=== PATIENT | male | born 1990 | race Caucasian/White ===

== ENCOUNTER 2018-10-31 18:01 | Emergency (ER) | payer OTHER ==
[~2018-10-31] VITALS: Ht 172.7 cm; Wt 154.2 kg
[2018-10-31 18:10] VITALS: BP 145/84
[2018-10-31] MEDS ORDERED: KETOROLAC 60 MG/2 ML VIAL IM ONE (18:25)
[2018-10-31] MEDS ORDERED: CLINDAMYCIN 600 MG/4 ML VIAL IM ONE (18:25)
[2018-10-31] MEDS ORDERED: NEOMYCIN/POLYMYXIN/BACITRACIN 0.9 GM/1 PKT TP ONE (18:25)
--- NOTE | 2018-10-31 19:01 | NUR ---
AAO X4 28 YR MALE WITH C/O NON DRAINING PAINFUL BUMP/RASH AT NECK X 2 DAYS. DENIES TRAUMA. HX: ASTHMA
--- NOTE | 2018-10-31 19:15 | NUR ---
REPORT GIVEN TO JULIO CESAR KENNY
[2018-10-31 19:25] VITALS: BP 145/84
--- NOTE | 2018-10-31 19:25 | NUR ---
Patient discharged with v/s stable. Written and verbal after care instructions given and explained. Patient alert, oriented and verbalized understanding of instructions. Ambulatory with steady gait. All questions addressed prior to discharge. ID band removed. Patient advised to follow up with PMD. Rx of Motrin, doxycyline, Condamycine given. Patient educated on indication of medication including possible reaction and side effects. Opportunity to ask questions provided and answered.
== END 2018-10-31 19:25 | disposition home or self-care (01) ==
LOC: MED 18:01
DX: L02.13 Carbuncle of neck (principal)
CPT/HCPCS: 96372; 99283; J1885; J3490

== ENCOUNTER 2019-03-22 12:59 | Emergency (ER) | payer OTHER ==
[~2019-03-22] VITALS: Ht 172.7 cm; Wt 154.2 kg
--- NOTE | 2019-03-22 13:10 | NUR ---
PATIENT AMBULATED TO BED 6 AT THIS TIME.
[2019-03-22 13:14] VITALS: BP 156/92
[2019-03-22] MEDS ORDERED: IBUPROFEN 800 MG TAB PO ONE (14:15)
[2019-03-22] MEDS ORDERED: LIDOCAINE 1% 500 MG/50 ML VIAL INJ SCH (14:15)
--- NOTE | 2019-03-22 14:17 | NUR ---
PT BIB FAMILY C/O ABCESS TO LEFT SIDE OF BREAST W/ REDNESS AND PAIN, PAIN 8/10, PT DENIES N/V/D; SKIN IS INTACT, PINK/WARM/DRY; AAOX4, PERRL, WITH EVEN AND STEADY GAIT; LUNGS CLEAR BL, BREATHING UNLABORED; HR EVEN AND REGULAR, BL PERIPHERAL PULSES PRESENT; BS ACTIVE X4, NO TENDERNESS TO PALPATION. PT DENIES ANY FEVER, CP, SOB, OR COUGH AT THIS TIME; PT STATES 5/10 PAIN AT THIS TIME; VSS; PATIENT POSITIONED FOR COMFORT; HOB ELEVATED; BEDRAILS UP X2; BED DOWN.
[2019-03-22] MEDS ORDERED: LIDOCAINE 2% 1000 MG/50 ML VIAL INJ ONE (14:43)
--- NOTE | 2019-03-22 15:00 | NUR ---
ARTHUR SHI AT BEDSIDE FOR I & D
[2019-03-22 15:43] VITALS: BP 149/83
--- NOTE | 2019-03-22 15:43 | NUR ---
Patient discharged with v/s stable. Written and verbal after care instructions given and explained. Patient alert, oriented and verbalized understanding of instructions. Ambulatory with steady gait. All questions addressed prior to discharge. ID band removed. Patient advised to follow up with PMD. Rx of BACTRIM, KEFLEX, AND CLOTRIMAZOLE TOPICAL CREAM given. Patient educated on indication of medication including possible reaction and side effects. Opportunity to ask questions provided and answered. PT INSTRUCTED TO CHANGE GAUZE TWICE A DAY FOR THE NEXT 2 DAYS AND THEN FOLLOW UP FOR A WOUND CHECK.
== END 2019-03-22 15:43 | disposition home or self-care (01) ==
LOC: MED 12:59
DX: J86.9 Pyothorax without fistula (principal); B35.4 Tinea corporis; R03.0 Elevated blood-pressure reading, without diagnosis of hypertension; J45.909 Unspecified asthma, uncomplicated
CPT/HCPCS: 10060; 99283; J2001

== ENCOUNTER 2019-03-24 17:05 | Emergency (ER) | payer OTHER ==
[~2019-03-24] VITALS: Ht 175.3 cm; Wt 158.5 kg
[2019-03-24 17:23] VITALS: BP 102/68
--- NOTE | 2019-03-24 17:27 | NUR ---
PATIENT AMBULATED TO ER BED 3.
--- NOTE | 2019-03-24 17:30 | NUR ---
PT BIB SELF TO THE ED FOR F/U LEFT BREAST ABSCESS. PT WAS HERE ON 03/22/19 FOR ABSCESS WHICH WAS DRAINED SAME DAY AND WAS TOLD TO F/U TODAY. TAKING ANTIBIOTICS SINCE THEN. DENIES FEVER. ABSCESS SITE APPEARS RED, WARM, FRIM. COVERED WITH DRESSING. DENIES ANY OTHER PROBLEM AT THIS TIME. STATES PAIN OF 0/10.
--- NOTE | 2019-03-24 17:38 | NUR ---
PT EVALUATED BY ISAIAS HINOJOSA. DRESSING CHANGED.
--- NOTE | 2019-03-24 17:45 | NUR ---
Patient discharged with v/s stable. Written and verbal after care instructions given and explained. Patient verbalized understanding. Ambulatory with steady gait. All questions addressed prior to discharge. Advised to follow up with PMD. Discharged by ER MD.
[2019-03-24 17:52] VITALS: BP 102/68
== END 2019-03-24 17:45 | disposition home or self-care (01) ==
LOC: MED 17:05
DX: N61.1 Abscess of the breast and nipple (principal); J45.909 Unspecified asthma, uncomplicated
CPT/HCPCS: 99281

== ENCOUNTER 2024-06-13 17:20 | Emergency (ER) | payer MEDICAID, OTHER ==
[~2024-06-13] VITALS: Ht 172.7 cm; Wt 187.1 kg
[2024-06-13 18:35] VITALS: BP 121/74; PULSE 105; RESP 18; TEMP 98.3; O2SAT 95
[2024-06-13] MEDS ORDERED: CEPH-588 PO (19:34)
[2024-06-13] MEDS ORDERED: ALBU0.0912 IH (19:34)
[2024-06-13] MEDS ORDERED: [UNRECOGNIZED DRUG - CODE] TP (19:34)
== END 2024-06-13 19:43 | disposition home or self-care (01) ==
LOC: MED 17:20
DX: J45.909 Unspecified asthma, uncomplicated (principal); L03.311 Cellulitis of abdominal wall; R03.0 Elevated blood-pressure reading, without diagnosis of hypertension; R21 Rash and other nonspecific skin eruption; Z76.0 Encounter for issue of repeat prescription; Z79.899 Other long term (current) drug therapy
CPT/HCPCS: 99283